=== PATIENT | male | born 1980 | race Caucasian/White ===

== ENCOUNTER 2021-03-17 16:41 | Emergency (ER) | payer MEDICAID ==
[~2021-03-17] VITALS: Ht 170.2 cm; Wt 81.6 kg
[2021-03-17 16:50] VITALS: BP_SYST 147
--- NOTE | 2021-03-17 16:50 | NUR ---
PT TO BED 2 FOR EVALUATION. REPORT GIVEN TO EDEN MARADIAGA WHO WILL ASSUME CARE.
--- NOTE | 2021-03-17 16:52 | NUR ---
PT AAO AND AMBULATORY REPORTING RIGHT CALF WOUND THAT STARTED ON March, APPROXIMATELY 1 WEEK AGO. PT WAS SEEN AT ANOTHER HOSPITAL AND GIVEN AUGMENTIN BID. PT HAS BEEN USING WARM COMPRESSES AND KEEPING AREA CLEAN. PT REPORTS THAT ABSCESS HAS CONTINUED TO GROW IN SIZE AND THAT THERE IS INCREASING DRAINAGE. PT RATES PAIN 5/10 ON PAIN SCALE.
--- NOTE | 2021-03-17 16:55 | NUR ---
Dr. Randolph at bedside to assess.
[2021-03-17] MEDS ORDERED: LIDOCAINE 1% 10 MG/ML, 20 ML MDV INJ ONE (17:00)
[2021-03-17] MEDS ORDERED: DIPH-TET-PERTUS Vaccine 0.5 ML VIAL (ADACEL) I.M. ONE (17:00)
--- NOTE | 2021-03-17 17:15 | NUR ---
LAC TRAY AT BEDSIDE, DR PAIZ PERFORMING I & D
[2021-03-17] MEDS ORDERED: BACITRACIN 1 GM OINT TP ONE ×2 (17:19→17:30)
[2021-03-17 17:21] LABS: BASOPHILS # (AUTO) 0.1 K/uL (0.0-0.2); EOSINOPHILS # (AUTO) 0.2 K/uL (0.0-0.4); EOSINOPHILS % (AUTO) 1.8 % (0.0-4.0); WHITE BLOOD COUNT (AUTO) 8.5 K/uL (4.8-10.8)
[2021-03-17 17:29] LABS: BASOPHILS % (AUTO) 0.8 % (0.0-2.0); HEMATOCRIT 42.2 % (36-54); HEMOGLOBIN 14.1 g/dL (14.0-18.0); LYMPHOCYTES # (AUTO) 2.5 K/uL (1.0-5.5); LYMPHOCYTES % (AUTO) 29.8 % (20.5-51.5); MEAN CORPUSCULAR HEMOGLOBIN 27 pg (27-31); MEAN CORPUSCULAR HGB CONC 33 % (32-36); MEAN CORPUSCULAR VOLUME 82 fL (79.0-98.0); MONOCYTES # (AUTO) 0.7 K/uL (0.0-1.0); MONOCYTES % (AUTO) 7.9 % (1.7-9.3); NEUTROPHILS # (AUTO) 5.1 K/uL (1.8-7.7); NEUTROPHILS % (AUTO) 59.7 % (40.0-70.0); PLATELET COUNT (AUTO) 329 K/uL (130-430); RED BLOOD CELL COUNT(AUTO) 5.18 MIL/uL (4.2-6.2); RED CELL DISTRIBUTION WIDTH 13.2 % (9.0-15.0)
[2021-03-17 17:39] LABS: INR 0.9 (0.80-1.20); PROTHROMBIN TIME 9.5 SECS (9.5-12.5)
[2021-03-17 17:46] LABS: ALBUMIN 3.7 g/dL (3.4-4.8); CREATININE 1.06 mg/dL (0.55-1.30); POTASSIUM 3.8 mmol/L (3.5-5.1); TOTAL BILIRUBIN 0.3 mg/dL (0.0-1.0)
--- NOTE | 2021-03-17 18:12 | NUR ---
PT INNAD. WAITING FOR LAB TESTS AND DISPOSITION.
[2021-03-17] MEDS ORDERED: CLIN-22 PO (18:18)
[2021-03-17 18:35] LABS: C-REACTIVE PROTEIN QUANT 2.3 mg/dL (0-0.5)
[2021-03-17 18:51] VITALS: BP_SYST 138
--- NOTE | 2021-03-17 18:52 | NUR ---
Patient given written and verbal discharge instructions and verbalizes understanding. ER MD discussed with patient the results and treatment provided. Patient in stable condition. ID arm band removed. Rx of CLINDAMYCIN given. Patient educated on pain management and to follow up with PMD. Pain Scale . Opportunity for questions provided and answered. Medication side effect fact sheet provided.
== END 2021-03-17 18:51 | disposition home or self-care (01) ==
LOC: SED 16:41
DX: L02.415 Cutaneous abscess of right lower limb (principal); Z88.1 Allergy status to other antibiotic agents
CPT/HCPCS: 10060; 36415; 80053; 83605; 85025; 85610; 85730; 86140; 90471; 90715; 99283; J2001

== ENCOUNTER 2021-03-20 13:30 | Emergency (ER) | payer MEDICAID ==
[~2021-03-20] VITALS: Ht 175.3 cm; Wt 65.8 kg
[~2021-03-20 13:30] MED LIST: CLIN-22 PO
--- NOTE | 2021-03-20 14:05 | NUR ---
Patient to ER bed 5 to gown for evaluation. Side rails up. Report given to EDEN Buchanan.
[2021-03-20] MEDS ORDERED: VANCOMYCIN HCL 1,000 MG in NS 250 ML IV ONE (14:15)
[2021-03-20 14:16] VITALS: BP_SYST 134
[2021-03-20] MEDS ORDERED: VANCOMYCIN HCL 1000 MG/VIAL IV ONE (14:25)
--- NOTE | 2021-03-20 15:51 | NUR ---
NATALIIAO REMAINS INFUSING PT VOICES NO COMPLAINTS
--- NOTE | 2021-03-20 16:22 | NUR ---
VANCO INFUSED AWARE PIV SITE FLUSHED PT STABLE
[2021-03-20 16:29] VITALS: BP_SYST 133
--- NOTE | 2021-03-20 16:31 | NUR ---
Patient given written and verbal discharge instructions and verbalizes understanding. ER RICHARD DEVRIES discussed with patient the results and treatment provided. Patient in stable condition. ID arm band removed. IV catheter removed intact and dressing applied, no active bleeding. Patient educated on pain management and to follow up with PMD. Pain Scale 0. Opportunity for questions provided and answered. Medication side effect fact sheet provided.
== END 2021-03-20 16:29 | disposition home or self-care (01) ==
LOC: SED 13:30
DX: Z48.00 Encounter for change or removal of nonsurgical wound dressing (principal); Z79.899 Other long term (current) drug therapy
CPT/HCPCS: 36415; 87040; 96365; 96366; 99284; J3370